=== PATIENT | female | born 1975 | race Two or more races ===

== ENCOUNTER 2023-05-23 17:27 | Inpatient (IN) | payer OTHER ==
[~2023-05-23] VITALS: Ht 165.1 cm; Wt 109.8 kg
[2023-05-23 19:52] LABS: Basophils # (auto) 0 10 ^3/uL (0-0.2); Basophils % (auto) 0.2 % (0.0-2.0); Eosinophils # (auto) 0.1 10 ^3/uL (0-0.8); Eosinophils % (auto) 1.3 % (0.0-7.0); Hematocrit 42.5 % (36.0-46.0); Hemoglobin 14.4 g/dL (12.2-16.2); Lymphocytes % (auto) 34.8 % (10.0-50.0); Mean Corpuscular Hemoglobin 29.6 pg (28.0-32.0); Mean Corpuscular Hgb Conc. 33.8 g/dL (32.0-36.0); Mean Corpuscular Volume 87.5 fL (80.0-100.0); Monocytes # (auto) 0.6 10 ^3/uL (0-1.3); Neutrophils # (auto) 4.9 10 ^3/uL (1.6-8.6); Neutrophils % (auto) 56.7 % (37.0-80.0); Nucleated Red Blood Cells % 0.1 %; Red Blood Cells 4.86 10^6/uL (4.0-5.20); Red Cell Distribution Width 13.5 % (11.8-14.3); White Blood Cell 8.7 10^3/uL (4.4-10.8)
[2023-05-23 20:08] LABS: Alanine Aminotransferase 11 U/L (7-40); Albumin 4.6 g/dL (3.2-4.8); Alkaline Phosphatase 68 U/L (46-116); Anion Gap 6 (5-15); Aspartate Aminotransferase 13 U/L (13-40); BUN/Creatinine Ratio 8.8 (10.0-20.0); Blood Urea Nitrogen 6 mg/dL (9-23); Calcium 8.8 mg/dL (8.7-10.4); Carbon Dioxide 23 mmol/L (20-30); Chloride 109 mmol/L (98-107); Glucose 96 mg/dL (74-106); Partial Thromboplastin Time 28.2 SEC (24.5-34.5); Potassium 3.7 mmol/L (3.5-5.1); Prothrombin Time 10.5 sec (9.3-11.8); Sodium 138 mmol/L (136-145); Total Protein 7.7 g/dL (5.7-8.2)
[2023-05-23] MEDS ORDERED: IOHEXOL 350 MG/ML 100ML IJ ONE (20:38)
[2023-05-23] MEDS ORDERED: ENOXAPARIN SOD 100 MG/1 ML SYRINGE SC ONE (22:00)
[2023-05-23] MEDS ORDERED: ONDANSETRON HCL 4 MG/2 ML VIAL IV PRN (22:15)
[2023-05-23] MEDS ORDERED: MORPHINE SULFATE INJ 2 MG/ml SYRG IV PRN (22:15)
[2023-05-23] MEDS ORDERED: TEMAZEPAM 15 MG CAP PO PRN (22:15)
[2023-05-23] MEDS ORDERED: NITROGLYCERIN 0.4 MG SL TAB SL PRN (22:15)
[2023-05-23] MEDS ORDERED: HYDROcodone-ACET 5/325MG TAB PO PRN (22:15)
[2023-05-23] MEDS: ACETAMINOPHEN 325 MG TAB PO PRN (22:53)
[2023-05-23 23:07] VITALS: PULSE 94; RESP 13; O2SAT 97
[2023-05-24 05:34] LABS: Basophils # (auto) 0 10 ^3/uL (0-0.2); Basophils % (auto) 0.2 % (0.0-2.0); Eosinophils # (auto) 0.1 10 ^3/uL (0-0.8); Eosinophils % (auto) 1.4 % (0.0-7.0); Hematocrit 39.6 % (36.0-46.0); Hemoglobin 13.4 g/dL (12.2-16.2); Lymphocytes # (auto) 2.8 10 ^3/uL (0.4-5.4); Lymphocytes % (auto) 36.6 % (10.0-50.0); Mean Corpuscular Hemoglobin 29.6 pg (28.0-32.0); Mean Corpuscular Hgb Conc. 33.9 g/dL (32.0-36.0); Mean Corpuscular Volume 87.4 fL (80.0-100.0); Monocytes # (auto) 0.7 10 ^3/uL (0-1.3); Monocytes % (auto) 8.5 % (0.0-12.0); Neutrophils # (auto) 4.1 10 ^3/uL (1.6-8.6); Neutrophils % (auto) 53.3 % (37.0-80.0); Red Blood Cells 4.53 10^6/uL (4.0-5.20); Red Cell Distribution Width 13.4 % (11.8-14.3); White Blood Cell 7.6 10^3/uL (4.4-10.8)
[2023-05-24 05:38] LABS: Alanine Aminotransferase 10 U/L (7-40); Albumin 4.1 g/dL (3.2-4.8); Alkaline Phosphatase 58 U/L (46-116); Anion Gap 6 (5-15); Aspartate Aminotransferase 13 U/L (13-40); BUN/Creatinine Ratio 7.9 (10.0-20.0); Bilirubin, Total 1.2 mg/dL (0.2-1.0); Blood Urea Nitrogen 6 mg/dL (9-23); Calcium 8.6 mg/dL (8.7-10.4); Carbon Dioxide 25 mmol/L (20-30); Chloride 107 mmol/L (98-107); Glucose 100 mg/dL (74-106); Potassium 3.8 mmol/L (3.5-5.1); Sodium 138 mmol/L (136-145); Total Protein 6.9 g/dL (5.7-8.2)
[2023-05-24 08:15] VITALS: PULSE 74; RESP 16; O2SAT 94
[2023-05-24] MEDS: ENOXAPARIN SOD 120 MG/0.8 ML SYRINGE SC SCH ×2 (10:42→21:10)
[2023-05-24 11:45] VITALS: BP 147/93; PULSE 85; RESP 18; TEMP 98.2; O2SAT 95
[2023-05-24 13:00] VITALS: BP 136/66; PULSE 89; RESP 18; TEMP 98; O2SAT 96
[2023-05-24 17:00] VITALS: BP 149/90; PULSE 84; RESP 18; TEMP 98.2; O2SAT 96
[2023-05-24 20:00] VITALS: PULSE 103
[2023-05-24] MEDS: ACETAMINOPHEN 325 MG TAB PO PRN (21:11)
[2023-05-24 22:00] VITALS: BP 129/80; PULSE 80; RESP 18; TEMP 98.2; O2SAT 96
[2023-05-24 22:12] LABS: Urine Bacteria FEW /hpf (None Seen); Urine Blood TRACE /uL (Negative); Urine Clarity Clear (Clear); Urine Color Colorless (Yellow); Urine Protein, UAD Negative (Negative); Urine Specific Gravity 1.013 (1.001-1.035); Urine Urobilinogen Normal (Negative); Urine WBC 1 /hpf (0 - 5); Urine pH 7.5 (5.0-8.0)
[2023-05-25] VITALS (7 sets, daily range): BP systolic 121–155; BP diastolic 80–98; PULSE 72–96; RESP 17–19; TEMP 97.9–98.3; O2SAT 95–98
[2023-05-25 07:27] LABS: Basophils # (auto) 0 10 ^3/uL (0-0.2); Basophils % (auto) 0.4 % (0.0-2.0); Eosinophils # (auto) 0.1 10 ^3/uL (0-0.8); Eosinophils % (auto) 1.8 % (0.0-7.0); Hemoglobin 13.6 g/dL (12.2-16.2); Lymphocytes # (auto) 1.9 10 ^3/uL (0.4-5.4); Lymphocytes % (auto) 35.6 % (10.0-50.0); Mean Corpuscular Hemoglobin 29.7 pg (28.0-32.0); Mean Corpuscular Hgb Conc. 33.9 g/dL (32.0-36.0); Mean Corpuscular Volume 87.9 fL (80.0-100.0); Monocytes # (auto) 0.4 10 ^3/uL (0-1.3); Monocytes % (auto) 7.9 % (0.0-12.0); Neutrophils # (auto) 2.9 10 ^3/uL (1.6-8.6); Neutrophils % (auto) 54.3 % (37.0-80.0); Nucleated Red Blood Cells % 0.2 %; Red Blood Cells 4.56 10^6/uL (4.0-5.20); Red Cell Distribution Width 13.1 % (11.8-14.3); White Blood Cell 5.4 10^3/uL (4.4-10.8)
[2023-05-25 07:42] LABS: Anion Gap 5 (5-15); Carbon Dioxide 27 mmol/L (20-30); Chloride 107 mmol/L (98-107); Potassium 3.8 mmol/L (3.5-5.1); Sodium 139 mmol/L (136-145)
[2023-05-25 07:43] LABS: Calcium 9.3 mg/dL (8.5-10.1)
[2023-05-25 07:48] LABS: Glucose 92 mg/dL (74-106)
[2023-05-25 07:49] LABS: BUN/Creatinine Ratio 10.7 (10.0-20.0); Blood Urea Nitrogen 8 mg/dL (9-23)
[2023-05-25] MEDS: APIXABAN 5 MG TAB PO SCH ×2 (10:34→20:43)
[2023-05-25] MEDS: ACETAMINOPHEN 325 MG TAB PO PRN (20:43)
[2023-05-26 05:00] VITALS: BP 138/79; PULSE 81; RESP 19; TEMP 98; O2SAT 95
[2023-05-26 08:00] VITALS: PULSE 63
[2023-05-26 08:15] VITALS: O2SAT 97
[2023-05-26 09:00] VITALS: BP 142/79; PULSE 95; RESP 16; TEMP 98; O2SAT 96
[2023-05-26] MEDS: APIXABAN 5 MG TAB PO SCH (09:40)
[2023-05-26] MEDS ORDERED: APIX5TAB PO ×3 (10:55→15:21)
[2023-05-26 13:00] VITALS: BP 140/81; PULSE 73; RESP 18; TEMP 97.9; O2SAT 95
[2023-06-01] MEDS ORDERED: APIXABAN 5 MG TAB PO SCH (10:00)
== END 2023-05-26 16:00 | disposition home or self-care (01) | DRG 299 ==
LOC: ER 17:27 → TELE 22:18 → TELE-CENTR 05-24 11:29
PROVIDERS: ADMIT Nurse Practitioner; ATTEND Internal Medicine
DX: I82.402 Acute embolism and thrombosis of unspecified deep veins of left lower extremity (principal); I26.99 Other pulmonary embolism without acute cor pulmonale; Z68.41 Body mass index [BMI] 40.0-44.9, adult; I10 Essential (primary) hypertension; E66.01 Morbid (severe) obesity due to excess calories
CPT/HCPCS: 36415; 71275; 80048; 80053; 81001; 84484; 85025; 85610; 85730; 93306; 93971; 96372; G0378